=== PATIENT | male | born 1990 | race Caucasian/White ===

== ENCOUNTER 2022-08-28 13:43 | Emergency (ER) | payer BC ==
[~2022-08-28] VITALS: Ht 193 cm; Wt 86.2 kg
[~2022-08-28 13:43] MED LIST: NEURONTIN600 MG PO; TOBREX OPHTH S2.5 ML OPH
[2022-08-28 14:35] LABS: BASO % 0.2 % (0.0-1.0); EOS % 0.2 % (1.0-4.0); LYMPH % 7.8 % (27.0-41.0); MEAN CELL VOLUME 94.3 fl (80.0-94.0); MEAN CORPUSCULAR HGB 30.6 pg (27.0-31.0); MEAN CORPUSCULAR HGB CONC 32.5 g/dl (33.0-37.0); MEAN PLATELET VOLUME 9.7 fl (9.6-12.3); MONO # 0.8 10*3/uL (0.1-1.0); MONO % 6.1 % (3.0-9.0); NEUT # 11.3 10*3/uL (2.3-7.9); NEUT % 85.5 % (47.0-73.0); PLATELET COUNT AUTOMATED 262 10*3/uL (130-400); RED BLOOD COUNT 5.09 10*6/uL (4.50-5.90); RED CELL DISTRI WIDTH 13.4 % (0-14.5); WHITE BLOOD COUNT 13.2 10*3/uL (4.8-10.8)
[2022-08-28 14:55] LABS: ALKALINE PHOSPHATASE 75 U/L (46-116); BUN 10 mg/dl (9-23); CHLORIDE 104 mmol/L (98-107); SGPT/ALT 31 U/L (10-49); THYROID STIM HORMONE (HS) 0.329 uIU/ml (0.550-4.780); TOTAL PROTEIN 7.2 gm/dL (6.0-8.0)
[2022-08-28 16:34] LABS: BILIRUBIN Negative (Negative); BLOOD Negative (Negative); CLARITY Clear (Clear); COLOR Yellow (Yellow); GLUCOSE Negative (Negative); KETONE Trace (Negative); LEUKO ESTERASE Negative (Negative); NITRITE Negative (Negative)
[2022-08-28 16:37] LABS: PH 8.5 (4.5-8.0)
[2022-08-28 16:41] LABS: EPITHELIAL CELLS 0-2; WBC 0-2 wbc/hpf (0-5)
[2022-08-28] MEDS ORDERED: PREDNISONE50 MG PO (17:09)
[2022-08-28] MEDS ORDERED: ZITHROMAX500 MG PO (17:09)
== END 2022-08-28 17:14 | disposition home or self-care (01) ==
LOC: ED 13:43
PROVIDERS: Nurse Practitioner Family
DX: J06.9 Acute upper respiratory infection, unspecified (principal); D73.4 Cyst of spleen; E03.9 Hypothyroidism, unspecified; Z88.8 Allergy status to other drugs, medicaments and biological substances; Z98.890 Other specified postprocedural states; Z20.822 Contact with and (suspected) exposure to COVID-19

== ENCOUNTER 2023-04-07 16:18 | Emergency (ER) | payer OTHER, MEDICAID ==
[~2023-04-07] VITALS: Ht 193 cm; Wt 95.3 kg
[~2023-04-07 16:18] MED LIST changes: +LISINOPRIL20 MG PO; +PREDNISONE50 MG PO; +ZITHROMAX500 MG PO
[2023-04-07] MEDS ORDERED: HYDROCODONE-AC1 EAC1 PO (16:51)
[2023-04-07] MEDS ORDERED: ANTIBIOTIC28.4 GM T (17:08)
[2023-04-07] MEDS ORDERED: CEPHALEXIN500 M1 PO (17:08)
== END 2023-04-07 17:25 | disposition home or self-care (01) ==
LOC: ED 16:18
DX: T23.212A Burn of second degree of left thumb (nail), initial encounter (principal); T31.0 Burns involving less than 10% of body surface; T75.09XA Other effects of lightning, initial encounter; I10 Essential (primary) hypertension; F41.9 Anxiety disorder, unspecified; Z88.8 Allergy status to other drugs, medicaments and biological substances; Z98.890 Other specified postprocedural states; F10.10 Alcohol abuse, uncomplicated; F17.200 Nicotine dependence, unspecified, uncomplicated; X08.8XXA Exposure to other specified smoke, fire and flames, initial encounter; Y93.89 Activity, other specified; Y92.89 Other specified places as the place of occurrence of the external cause; Y99.0 Civilian activity done for income or pay

== ENCOUNTER 2025-01-25 13:22 | Emergency (ER) | payer OTHER ==
[~2025-01-25] VITALS: Ht 193 cm; Wt 108.9 kg
[~2025-01-25 13:22] MED LIST changes: +ANTIBIOTIC28.4 GM T; +CEPHALEXIN500 M1 PO; +HYDROCODONE-AC1 EAC1 PO
[2025-01-25] MEDS ORDERED: Acetaminophen/Oxycodone 5 MG/325 MG TABLET PO ONE (13:35)
[2025-01-25] MEDS ORDERED: MELOXICAM15 MG PO (13:54)
== END 2025-01-25 14:01 | disposition home or self-care (01) ==
LOC: ED 13:22
DX: S93.401A Sprain of unspecified ligament of right ankle, initial encounter (principal); Z88.8 Allergy status to other drugs, medicaments and biological substances; Z79.899 Other long term (current) drug therapy; Z98.890 Other specified postprocedural states; Z87.891 Personal history of nicotine dependence; X50.1XXA Overexertion from prolonged static or awkward postures, initial encounter; Y93.89 Activity, other specified; Y92.89 Other specified places as the place of occurrence of the external cause; Y99.8 Other external cause status